=== PATIENT | female | born 1995 | race American Indian/Alaskan Native ===

== ENCOUNTER 2016-08-01 06:45 | Inpatient (IN) | payer MEDICAID ==
[~2016-08-01] VITALS: Ht 167.6 cm; Wt 100.5 kg
[~2016-08-01 06:45] MED LIST: ACET325T14 PO; ALBU8.5H5 INH; ARIP15TA2 PO; FLUT1DIS3 INH; MONT10TA6 PO; NITR100C56 PO; ONDA4TAB7 PO; PRED20TA PO; PREN1TAB56 PO; PREN1TAB62 PO; QUET200T PO; QUET200T4 PO; TOPI25TA32 PO; TOPI50TA35 PO; [UNRECOGNIZED DRUG - OTHER] PO
[2016-08-01] MEDS ORDERED: LACTATED RINGERS 1,000 ML IV SCH ×3 (07:25→09:35)
[2016-08-01] MEDS ORDERED: OXYTOCIN 30U/ 0.9% NaCL 500ML 500 ML IV SCH (07:25)
[2016-08-01 07:30] VITALS: BP 124/78
[2016-08-01] MEDS ORDERED: METOCLOPRAMIDE 5 MG/ML, 2ML IV ONE (07:30)
[2016-08-01] MEDS ORDERED: LACTATED RINGERS 1,000 ML IVBOLUS ONE (07:30)
[2016-08-01] MEDS ORDERED: SODIUM CITRATE/CITRIC ACID 30 ML UDC PO ONE (07:30)
[2016-08-01] MEDS ORDERED: NEWBORN KIT ONE (07:32)
[2016-08-01] MEDS ORDERED: PLEASE ENTER HEIGHT AND WEIGHT MC SCH (08:00)
[2016-08-01] MEDS ORDERED: PROMETHAZINE 25 MG/ML, 1ML IV PRN (08:00)
[2016-08-01] MEDS ORDERED: hydrALAzine 20 MG/ML, 1ML IV PRN (08:00)
[2016-08-01] MEDS ORDERED: OXYcodone 5 MG/5 ML ORAL.SOL UDC PO PRN (08:00)
[2016-08-01] MEDS ORDERED: MIDAZOLAM 1 MG/ML, 2ML IV PRN (08:00)
[2016-08-01] MEDS ORDERED: MEPERIDINE/PF 25MG/0.5ML IVPush PRN (08:00)
[2016-08-01] MEDS ORDERED: LABETALOL 5MG/ML, 20ML IV PRN (08:00)
[2016-08-01] MEDS ORDERED: EPHEDRINE 50 MG/ML, 1ML IVPush PRN (08:00)
[2016-08-01] MEDS ORDERED: FENTANYL PF 100 MCG/2ML IV PRN (08:00)
[2016-08-01] MEDS ORDERED: ONDANSETRON 2MG/ML, 2ML IVPush PRN (08:00)
[2016-08-01] MEDS ORDERED: ALBUTEROL SULFATE 2.5 MG/3 ML NPPB PRN (08:00)
[2016-08-01] MEDS ORDERED: HYDROcodone/APAP 7.5-325MG/15ML UDC PO PRN (08:00)
[2016-08-01 08:11] LABS: HEMOGLOBIN 12.3 g/dL (11.7-16.4)
[2016-08-01] MEDS ORDERED: SODIUM CITRATE/CITRIC ACID 30 ML UDC ONE (08:24)
[2016-08-01] MEDS ORDERED: METOCLOPRAMIDE 5 MG/ML, 2ML ONE ×2 (08:24→09:33)
[2016-08-01] MEDS ORDERED: ALBU0.63 NEB (08:38)
[2016-08-01 08:56] LABS: DAU SCREEN DISCLAIMER
[2016-08-01] MEDS ORDERED: OXYTOCIN 30U/ 0.9% NaCL 500ML 500 ML ONE (09:06)
[2016-08-01] MEDS ORDERED: FENTANYL PF 100 MCG/2ML ONE (09:31)
[2016-08-01] MEDS ORDERED: PHENYLEPHRINE 10 MG/ML ONE (09:33)
[2016-08-01] MEDS ORDERED: KETOROLAC 30 MG/1 ML ONE (09:33)
[2016-08-01] MEDS ORDERED: CEFAZOLIN 1,000 MG ONE (09:33)
[2016-08-01] MEDS ORDERED: ONDANSETRON 2MG/ML, 2ML ONE (09:33)
[2016-08-01] MEDS ORDERED: DEXAMETHASONE 4 MG/ML, 1ML ONE (09:33)
[2016-08-01] MEDS ORDERED: EPHEDRINE 50 MG/ML, 1ML ONE (09:33)
[2016-08-01] MEDS: OXYTOCIN 30U/ 0.9% NaCL 500ML 500 ML IV SCH ×2 (09:35→19:35)
[2016-08-01] MEDS ORDERED: MISOPROSTOL 200 MCG TABLET PR PRN (10:00)
[2016-08-01] MEDS ORDERED: MEPERIDINE/PF 25MG/0.5ML IM PRN (10:00)
[2016-08-01] MEDS ORDERED: OXYcodone IR 5MG TABLET PO PRN (10:00)
[2016-08-01] MEDS ORDERED: ONDANSETRON 2MG/ML, 2ML IV PRN (10:00)
[2016-08-01] MEDS ORDERED: SIMETHICONE 80 MG CHEW TAB PO PRN (10:00)
[2016-08-01] MEDS ORDERED: MEPERIDINE/PF 50 MG/ML IM PRN (10:00)
[2016-08-01] MEDS ORDERED: CALCIUM CARBONATE 500 MG TAB.CHEW PO PRN (10:00)
[2016-08-01] MEDS ORDERED: morphine SULFATE 10 MG/ML, 1ML IVPush PRN ×2 (10:00)
[2016-08-01] MEDS: LACTATED RINGERS 1,000 ML IV SCH ×2 (11:36→19:35)
[2016-08-01 12:56] VITALS: BP 117/72
[2016-08-01] MEDS: OXYcodone/APAP 5/325MG TABLET PO PRN ×3 (13:29→22:03)
[2016-08-01] MEDS: KETOROLAC 30 MG/1 ML IV SCH (19:14)
[2016-08-01 20:50] VITALS: BP 120/71
[2016-08-01] MEDS: DOCUSATE 100 MG CAPSULE PO SCH (22:03)
[2016-08-02 00:02] VITALS: BP 111/65
[2016-08-02] MEDS: KETOROLAC 30 MG/1 ML IV SCH ×3 (01:23→14:43)
[2016-08-02] MEDS: OXYcodone/APAP 5/325MG TABLET PO PRN ×3 (04:51→21:44)
[2016-08-02] MEDS: LACTATED RINGERS 1,000 ML IV SCH ×2 (05:35→15:35)
[2016-08-02] MEDS: OXYTOCIN 30U/ 0.9% NaCL 500ML 500 ML IV SCH ×2 (05:35→15:35)
[2016-08-02 06:11] LABS: HEMOGLOBIN 10.8 g/dL (11.7-16.4)
[2016-08-02 06:45] VITALS: BP 133/79
[2016-08-02] MEDS ORDERED: KETOROLAC 30 MG/1 ML ONE ×2 (08:29→14:37)
[2016-08-02] MEDS: OXYcodone IR 5MG TABLET PO PRN ×2 (08:34→17:34)
[2016-08-02] MEDS: DOCUSATE 100 MG CAPSULE PO SCH ×2 (08:35→21:44)
[2016-08-02] MEDS: PRENATAL VIT/IRON/FA 1 EACH TABLET PO SCH (08:35)
[2016-08-02 19:30] VITALS: BP 128/89
[2016-08-02] MEDS: IBUPROFEN 600 MG TABLET PO PRN (21:44)
[2016-08-03] MEDS: OXYcodone/APAP 5/325MG TABLET PO PRN ×3 (03:08→11:01)
[2016-08-03] MEDS: DOCUSATE 100 MG CAPSULE PO SCH (07:19)
[2016-08-03] MEDS: IBUPROFEN 600 MG TABLET PO PRN (07:19)
[2016-08-03] MEDS: PRENATAL VIT/IRON/FA 1 EACH TABLET PO SCH (07:19)
[2016-08-03 08:00] VITALS: BP 125/89
[2016-08-03] MEDS ORDERED: OXYC-302 PO (11:42)
[2016-08-03] MEDS ORDERED: DOCU-30 PO (11:43)
[2016-08-03] MEDS ORDERED: IBUP800T PO (11:43)
== END 2016-08-03 12:20 | disposition home or self-care (01) | DRG 766 ==
LOC: EDIP 06:45 → LDIP 06:45 → UNDOADMIN 06:45 → 2NW 12:41
PROVIDERS: ADMIT Obstetrics & Gynecology; ATTEND Obstetrics & Gynecology
PROC: 10D00Z1 Extraction of Products of Conception, Low, Open Approach (ICD-10-PCS; principal; 2016-08-01)
DX: O34.211 Maternal care for low transverse scar from previous cesarean delivery (principal); J45.909 Unspecified asthma, uncomplicated; O99.72 Diseases of the skin and subcutaneous tissue complicating childbirth; O99.52 Diseases of the respiratory system complicating childbirth; Z37.0 Single live birth; Z30.2 Encounter for sterilization; Z3A.39 39 weeks gestation of pregnancy; F32.9 Major depressive disorder, single episode, unspecified; O99.344 Other mental disorders complicating childbirth; Z23 Encounter for immunization
CPT/HCPCS: 36415; 80307; 85025; 86850; 86900; J0690; J1100; J1885; J2405; J3010; J2370; J2590; J2765; J7120

== ENCOUNTER 2016-09-06 17:11 | Emergency (ER) | payer MEDICAID ==
[~2016-09-06] VITALS: Ht 167.6 cm; Wt 95.2 kg
[~2016-09-06 17:11] MED LIST changes: +ALBU0.63 NEB; +DOCU-30 PO; +IBUP800T PO; +OXYC-302 PO
[2016-09-06] MEDS ORDERED: ONDANSETRON 2MG/ML, 2ML IVPush ONE (17:30)
[2016-09-06] MEDS ORDERED: SODIUM CHLORIDE FLUSH 10ML SYR IVF ONE (17:30)
[2016-09-06] MEDS ORDERED: ONDANSETRON 2MG/ML, 2ML ONE (17:48)
[2016-09-06 17:54] LABS: ASPARTATE AMINO TRANSFERASE 10 U/L (15-37); BLOOD UREA NITROGEN 10 mg/dL (7-18)
[2016-09-06 18:16] VITALS: BP 127/84
[2016-09-06] MEDS ORDERED: OMNIPAQUE 350 MG/ML, 100ML BOTTLE ONE (19:14)
== END 2016-09-06 18:53 | disposition home or self-care (01) ==
LOC: ED 18:47
DX: N83.291 Other ovarian cyst, right side (principal); R10.84 Generalized abdominal pain; J45.909 Unspecified asthma, uncomplicated
CPT/HCPCS: 36415; 74177; 80053; 81003; 83690; 84703; 85025; 96374; 99285; J2405; Q9967

== ENCOUNTER 2016-10-12 12:01 | Emergency (ER) | payer MEDICAID ==
[~2016-10-12] VITALS: Ht 167.6 cm; Wt 95.1 kg
[2016-10-12 12:21] VITALS: BP 114/79
[2016-10-12 13:22] LABS: ASPARTATE AMINO TRANSFERASE 9 U/L (15-37); BLOOD UREA NITROGEN 13 mg/dL (7-18)
== END 2016-10-12 15:37 | disposition home or self-care (01) ==
LOC: ED 13:05
DX: G89.29 Other chronic pain (principal); R10.31 Right lower quadrant pain; R10.32 Left lower quadrant pain; J45.909 Unspecified asthma, uncomplicated; F90.9 Attention-deficit hyperactivity disorder, unspecified type; F31.9 Bipolar disorder, unspecified
CPT/HCPCS: 36415; 74022; 76830; 80053; 81001; 83605; 83690; 84703; 85025

== ENCOUNTER 2016-10-18 14:08 | Emergency (ER) | payer MEDICAID, OTHER ==
[~2016-10-18] VITALS: Ht 167.6 cm; Wt 94.7 kg
[2016-10-18 14:10] VITALS: BP 115/80
[2016-10-18] MEDS ORDERED: METHOCARBAMOL 750 MG TABLET ONE (14:50)
[2016-10-18] MEDS ORDERED: KETOROLAC 30 MG/1 ML ONE (14:50)
[2016-10-18] MEDS ORDERED: KETOROLAC 30 MG/1 ML IM ONE (15:00)
[2016-10-18] MEDS ORDERED: METHOCARBAMOL 750 MG TABLET PO ONE (15:00)
== END 2016-10-18 15:37 | disposition home or self-care (01) ==
LOC: ED 15:31
DX: S29.012A Strain of muscle and tendon of back wall of thorax, initial encounter (principal); M54.12 Radiculopathy, cervical region; J45.909 Unspecified asthma, uncomplicated; F90.9 Attention-deficit hyperactivity disorder, unspecified type; X50.0XXA Overexertion from strenuous movement or load, initial encounter; Y93.89 Activity, other specified; Y92.89 Other specified places as the place of occurrence of the external cause; Y99.8 Other external cause status
CPT/HCPCS: 96372; 99283; J1885

== ENCOUNTER 2016-11-13 19:18 | Emergency (ER) | payer MEDICAID, OTHER ==
[~2016-11-13] VITALS: Ht 167.6 cm; Wt 94.6 kg
[2016-11-13] MEDS ORDERED: KETOROLAC 30 MG/1 ML IM ONE (20:00)
[2016-11-13 20:03] LABS: PATH.CAST-FLAG NOT PRESENT; SPERM-FLAG NOT PRESENT; SRC-FLAG NOT PRESENT; XTAL-FLAG NOT PRESENT; YLC-FLAG NOT PRESENT
[2016-11-13 20:41] LABS: ASPARTATE AMINO TRANSFERASE 14 U/L (15-37); BLOOD UREA NITROGEN 11 mg/dL (7-18)
[2016-11-13] MEDS ORDERED: KETOROLAC 30 MG/1 ML ONE (20:45)
[2016-11-13 21:10] VITALS: BP 116/84
== END 2016-11-13 21:57 | disposition home or self-care (01) ==
LOC: ED 21:25
DX: R10.32 Left lower quadrant pain (principal); R11.0 Nausea; J45.909 Unspecified asthma, uncomplicated
CPT/HCPCS: 36415; 76830; 80053; 81001; 84703; 85025; 87086; 96372; 99285; J1885

== ENCOUNTER 2016-12-28 11:28 | Emergency (ER) | payer MEDICAID ==
[~2016-12-28] VITALS: Ht 167.6 cm; Wt 95.0 kg
[~2016-12-28 11:28] MED LIST changes: -ARIP15TA2 PO; +ARIP15TA3 PO; +DOCU-131 PO; -DOCU-30 PO; +IBUP-1223 PO; -IBUP800T PO
[2016-12-28] MEDS ORDERED: SODIUM CHLORIDE 0.9% 1,000 ML IV ONE (11:58)
[2016-12-28] MEDS ORDERED: KETOROLAC 30 MG/1 ML IVPush ONE (12:00)
[2016-12-28] MEDS ORDERED: ONDANSETRON 2MG/ML, 2ML IVPush ONE (12:00)
[2016-12-28] MEDS ORDERED: MORPHINE SULFATE 4 MG/ML, 1ML IVPush PRN (12:00)
[2016-12-28 12:20] LABS: HEMATOCRIT 41.9 % (34.6-47.8); WHITE BLOOD COUNT 10.6 x10^3/uL (3.4-10)
[2016-12-28 12:28] LABS: BLOOD UREA NITROGEN 14 mg/dL (7-18)
[2016-12-28 12:32] LABS: ASPARTATE AMINO TRANSFERASE 13 U/L (15-37)
[2016-12-28] MEDS ORDERED: KETOROLAC 30 MG/1 ML ONE (12:37)
[2016-12-28] MEDS ORDERED: ONDANSETRON 2MG/ML, 2ML ONE (12:37)
[2016-12-28] MEDS ORDERED: MORPHINE SULFATE 4 MG/ML, 1ML ONE (12:37)
[2016-12-28 13:04] LABS: HCG UR OBC PASS
[2016-12-28 14:30] VITALS: BP 116/62
== END 2016-12-28 14:31 | disposition home or self-care (01) ==
LOC: ED 12:33
DX: R05 Cough (principal); J45.909 Unspecified asthma, uncomplicated; G40.909 Epilepsy, unspecified, not intractable, without status epilepticus; F90.9 Attention-deficit hyperactivity disorder, unspecified type
CPT/HCPCS: 36415; 71010; 76830; 80053; 81001; 81025; 85025; 87086; 96361; 96374; 96375; 99285; J1885; J2405; J7030

== ENCOUNTER 2019-06-15 19:09 | Observation (INO) | payer MEDICAID ==
[~2019-06-15] VITALS: Ht 167.6 cm; Wt 113.6 kg
--- NOTE | 2019-06-15 20:47 | NUR ---
pt to room at this time from lobby
--- NOTE | 2019-06-15 20:59 | NUR ---
PT TO ROOM. PT REPORTS GETTING SICK AND HAVING ABD PAIN AFTER EATING PIZZA FROM [employer]. AND 2 FRIENDS ALOS ATE THE PIZZA AND HAVE BEEN FINE.
[2019-06-15 21:38] LABS: BASOPHILS # (AUTO) 0.05 x10^3/uL (0-0.1); BASOPHILS % (AUTO) 1 % (0-1); EOSINOPHILS # (AUTO) 0.06 x10^3/uL (0-0.4); EOSINOPHILS % (AUTO) 1 % (1-7); LYMPHOCYTES # (AUTO) 1.96 x10^3/uL (1-3.4); LYMPHOCYTES % (AUTO) 20 % (22-44); MD NO; MEAN CORPUSCULAR HGB CONC 33.3 g/dL (32.4-35.8); MEAN CORPUSCULAR VOLUME 87.1 fL (80-100); MEAN PLATELET VOLUME 7.4 fL (7.4-10.4); MONOCYTES # (AUTO) 0.49 x10^3/uL (0.2-0.8); MONOCYTES % (AUTO) 5 % (2-9); NEUTROPHILS # (AUTO) 7.49 x10^3/uL (1.8-6.8); NEUTROPHILS % (AUTO) 75 % (42-75); PLATELET COUNT 464 x10^3/uL (130-400); RED BLOOD COUNT 4.66 x10^6/uL (3.82-5.3); RED CELL DISTRIBUTION WIDTH 14.6 % (9.6-15.2)
[2019-06-15] MEDS ORDERED: MORPHINE SULFATE 4 MG/ML, 1ML ONE ×2 (21:43→23:43)
[2019-06-15] MEDS ORDERED: ONDANSETRON 2MG/ML, 2ML ONE (21:43)
[2019-06-15 21:49] LABS: ALBUMIN 3.2 g/dL (3.4-5.0); ANION GAP 5 mmol/L (5-15); CALCIUM 8.5 mg/dL (8.5-10.1); CHLORIDE 110 mmol/L (98-107)
[2019-06-15 21:50] LABS: MICROSCOPIC INDICATED
[2019-06-15 21:52] LABS: ALANINE AMINOTRANSFERASE 79 U/L (12-78); CREATININE 0.74 mg/dL (0.55-1.02)
[2019-06-15] MEDS: MORPHINE SULFATE 4 MG/ML, 1ML IVPush PRN ×2 (21:52→23:49)
[2019-06-15 21:53] LABS: CULTURE INDICATED? YES
[2019-06-15 21:53] LABS: ALKALINE PHOSPHATASE 143 U/L (45-117); BILIRUBIN,TOTAL 0.8 mg/dL (0.2-1.0); TOTAL PROTEIN 7.3 g/dL (6.4-8.2)
--- NOTE | 2019-06-15 21:53 | NUR ---
PT VOMITTING AND NASEUOUS. SEE MAR FOR INTERVENTIONS
[2019-06-15 21:54] LABS: SALICYLATE LEVEL < 1.7 mg/dL (2.8-20.0)
[2019-06-15 22:00] LABS: AMPHETAMINE SCREEN, URINE Negative (Negative); BARBITURATE SCREEN, URINE Negative (Negative); BENZODIAZEPINE SCREEN, URINE Negative (Negative); CANNABINOID SCREEN, URINE Negative (Negative); COCAINE SCREEN, URINE Negative (Negative); METHADONE SCREEN, URINE Negative (Negative); OPIATE SCREEN, URINE Negative (Negative)
[2019-06-15] MEDS ORDERED: ONDANSETRON 2MG/ML, 2ML IVPush ONE (22:00)
--- NOTE | 2019-06-15 22:06 | NUR ---
REPORT GIVEN TO ARMANI MOSS.
--- NOTE | 2019-06-15 22:10 | NUR ---
REPORT RECEIVED AND CARE ASSUMED. PT WITH NO S/S OF ACUTE DISTRESS. AWAITING US. CALL LIGHT IN REACH. VSS. NO NEEDS EXPRESSED AT THIS TIME.
--- NOTE | 2019-06-15 22:34 | NUR ---
PT TO US VIA [facility]
[2019-06-15] MEDS ORDERED: SODIUM CHLORIDE 0.9% 1,000 ML IV ONE (23:28)
[2019-06-15] MEDS ORDERED: SODIUM CHLORIDE FLUSH 10ML SYR IVF PRN (23:30)
[2019-06-15] MEDS ORDERED: HYDROmorphone 1 MG/ML, 1ML INJ IVPush PRN (23:30)
[2019-06-15] MEDS ORDERED: PROMETHAZINE 25 MG/ML, 1ML IM PRN (23:30)
[2019-06-15] MEDS ORDERED: ONDANSETRON 2MG/ML, 2ML IVPush PRN (23:30)
[2019-06-15] MEDS ORDERED: PIPERACILLIN/TAZO/PMX 3.375GM 50 ML IV ONE (23:30)
[2019-06-15] MEDS ORDERED: PIPERACILLIN/TAZO/PMX 3.375GM 50 ML ONE (23:43)
--- NOTE | 2019-06-15 23:58 | NUR ---
PT MEDICATED PER MAR FOR CONTINUED PAIN. IV ANTIBIOTICS AND FLUIDS INFUSING. CALL LIGHT IN REACH. AWAITING ADMISSION.
--- NOTE | 2019-06-16 00:11 | NUR ---
SURGEON AT BEDSIDE FOR EVAL.
[2019-06-16] MEDS ORDERED: ONDANSETRON ODT 4 MG PO PRN (00:30)
[2019-06-16] MEDS ORDERED: ACETAMINOPHEN 325 MG TABLET PO PRN ×2 (00:30→10:00)
[2019-06-16] MEDS ORDERED: CEFOTETAN PMX 2GM/50ML 50 ML IV SCH (01:00)
[2019-06-16 01:06] VITALS: BP 143/91
[2019-06-16] MEDS ORDERED: ALBU18HF IH (01:37)
[2019-06-16] MEDS: D5%-0.45NACL+KCL 20MEQ 1,000 ML IV SCH ×2 (01:51→12:00)
[2019-06-16 02:00] VITALS: BP 143/91
[2019-06-16 06:43] LABS: MEAN CORPUSCULAR HEMOGLOBIN 28.8 pg (27.0-34.8); MEAN CORPUSCULAR HGB CONC 33.1 g/dL (32.4-35.8); MEAN CORPUSCULAR VOLUME 86.9 fL (80-100); MEAN PLATELET VOLUME 7.1 fL (7.4-10.4); PLATELET COUNT 406 x10^3/uL (130-400); RED BLOOD COUNT 4.22 x10^6/uL (3.82-5.3); RED CELL DISTRIBUTION WIDTH 14.5 % (9.6-15.2)
[2019-06-16 06:53] LABS: ANION GAP 6 mmol/L (5-15); CALCIUM 8.1 mg/dL (8.5-10.1); CHLORIDE 111 mmol/L (98-107); CREATININE 1.01 mg/dL (0.55-1.02)
[2019-06-16 07:28] VITALS: BP 91/64
[2019-06-16 08:06] LABS: MD YES
[2019-06-16 08:14] LABS: BAND#(MANUAL) 0.09 x10^3/uL; BANDS%(MANUAL) 1 % (0-7); EOS#(MANUAL) 0.17 x10^3/uL (0.0-0.4); EOS% (MANUAL) 2 % (1-7); LYMPH#(MANUAL) 3.06 x10^3/uL (1-3.4); LYMPHS% (MANUAL) 36 % (22-44); MONOS#(MANUAL) 0.26 x10^3/uL (0.3-2.7); MONOS% (MANUAL) 3 % (2-9); SEG#(MANUAL) 4.93 x10^3/uL (1.8-6.8); SEGS% (MANUAL) 58 % (42-75)
[2019-06-16 08:15] LABS: <PLATELET ESTIMATE> ADEQUATE; <PLT MORPHOLOGY> NORMAL PLT MORPH; <RBC MORPHOLOGY> NORMAL
[2019-06-16] MEDS ORDERED: OXYcodone 5 MG/5 ML ORAL.SOL UDC PO PRN (10:00)
[2019-06-16] MEDS ORDERED: HYDROmorphone 2 MG/ML, 1ML IVPush PRN (10:00)
[2019-06-16] MEDS ORDERED: MEPERIDINE/PF 25MG/ML,1ML IVPush PRN (10:00)
[2019-06-16] MEDS ORDERED: ONDANSETRON 2MG/ML, 2ML IV PRN (10:00)
[2019-06-16] MEDS ORDERED: EPHEDRINE 50 MG/ML, 1ML IVPush PRN (10:00)
[2019-06-16] MEDS ORDERED: METOPROLOL 1 MG/ML, 5ML IV PRN (10:00)
[2019-06-16] MEDS ORDERED: PROMETHAZINE 25 MG/ML, 1ML IV PRN (10:00)
[2019-06-16] MEDS ORDERED: LABETALOL 5MG/ML, 20ML IV PRN (10:00)
[2019-06-16] MEDS ORDERED: morphine SULFATE 10 MG/ML, 1ML ONE (10:38)
[2019-06-16] MEDS: morphine SULFATE 10 MG/ML, 1ML IVPush PRN ×3 (10:45→13:12)
[2019-06-16] MEDS ORDERED: FENTANYL PF 100 MCG/2ML ONE ×4 (10:54→12:35)
[2019-06-16] MEDS ORDERED: MIDAZOLAM 1 MG/ML, 2ML ONE (10:54)
[2019-06-16] MEDS ORDERED: BUPIVACAINE/PF 0.5% ONE (11:12)
[2019-06-16] MEDS ORDERED: EPINEPHRINE 1 MG/ML, 1ML ONE (11:12)
[2019-06-16] MEDS ORDERED: ONDANSETRON 2MG/ML, 2ML ONE (11:20)
[2019-06-16] MEDS ORDERED: CEFOTETAN PMX 1GM/50ML 100 ML ONE (11:20)
[2019-06-16] MEDS ORDERED: SUCCINYLCHOLINE 20 MG/ML, 10ML ONE (11:20)
[2019-06-16] MEDS ORDERED: PROPOFOL 10 MG/ML, 20ML ONE (11:20)
[2019-06-16] MEDS ORDERED: DEXAMETHASONE 4 MG/ML, 1ML ONE (11:20)
[2019-06-16] MEDS ORDERED: ROCURONIUM 10MG/ML,5ML ONE (11:20)
[2019-06-16] MEDS ORDERED: GLYCOPYRROLATE 0.2MG/1ML, 5ML ONE (11:20)
[2019-06-16] MEDS ORDERED: CEFAZOLIN 1,000 MG ONE (11:20)
[2019-06-16] MEDS ORDERED: NEOSTIGMINE 1 MG/ML, 10ML ONE (11:20)
[2019-06-16] MEDS ORDERED: LIDOCAINE-MPF 2% ,5ML ONE (11:25)
[2019-06-16] MEDS ORDERED: KETOROLAC 30 MG/1 ML ONE (11:32)
[2019-06-16] MEDS ORDERED: BUPIVACAINE/PF-EPI 0.5% 1:200K INFIL ONE (11:49)
[2019-06-16] MEDS ORDERED: HYDROcodone/APAP 5/325 TABLET PO PRN (12:30)
[2019-06-16] MEDS ORDERED: PROMETHAZINE 25 MG/ML, 1ML ONE (12:34)
[2019-06-16] MEDS: FENTANYL PF 100 MCG/2ML IV PRN ×2 (12:36→13:00)
[2019-06-16] MEDS ORDERED: HYDROmorphone 1 MG/ML, 1ML INJ ONE (13:22)
[2019-06-16 13:50] VITALS: BP 108/62
[2019-06-16] MEDS ORDERED: ONDA4TAB13 SL (16:25)
[2019-06-16] MEDS ORDERED: HYDR-3240 PO (16:26)
[2019-06-16 17:57] VITALS: BP 109/73
== END 2019-06-16 18:28 | disposition home or self-care (01) ==
LOC: OR 06-16 00:07 → EDIP 06-16 00:21 → 4NE 06-16 00:57
PROVIDERS: ADMIT Surgery; ATTEND Surgery
DX: K80.00 Calculus of gallbladder with acute cholecystitis without obstruction (principal); E66.9 Obesity, unspecified; G40.909 Epilepsy, unspecified, not intractable, without status epilepticus; F31.9 Bipolar disorder, unspecified; F41.1 Generalized anxiety disorder; J45.909 Unspecified asthma, uncomplicated; Z68.41 Body mass index [BMI] 40.0-44.9, adult; Z79.899 Other long term (current) drug therapy; Z90.89 Acquired absence of other organs
CPT/HCPCS: 36415; 47562; 76700; 80048; 80053; 80307; 81001; 83690; 84703; 85025; 87077; 87086; 87186; 88304; 93005; 96365; 96367; 96375; 99285; G0378; J0171; J0330; J1100; J1170; J1885; J2250; J2270; J2405; J2543; J2550; J2704; J2710; J3010; J3480; J3490; J7030; S0020; J0690

== ENCOUNTER 2019-07-07 14:14 | Emergency (ER) | payer MEDICAID ==
[~2019-07-07] VITALS: Ht 167.6 cm; Wt 115.2 kg
[~2019-07-07 14:14] MED LIST changes: +ALBU18HF IH; +HYDR-3240 PO; +ONDA4TAB13 SL
[2019-07-07 15:14] LABS: BASOPHILS # (AUTO) 0.09 x10^3/uL (0-0.1); BASOPHILS % (AUTO) 1 % (0-1); EOSINOPHILS # (AUTO) 0.19 x10^3/uL (0-0.4); EOSINOPHILS % (AUTO) 2 % (1-7); LYMPHOCYTES # (AUTO) 3.38 x10^3/uL (1-3.4); LYMPHOCYTES % (AUTO) 36 % (22-44); MD NO; MEAN CORPUSCULAR HEMOGLOBIN 28.3 pg (27.0-34.8); MEAN CORPUSCULAR HGB CONC 32.5 g/dL (32.4-35.8); MEAN CORPUSCULAR VOLUME 86.9 fL (80-100); MEAN PLATELET VOLUME 6.8 fL (7.4-10.4); MONOCYTES # (AUTO) 0.46 x10^3/uL (0.2-0.8); MONOCYTES % (AUTO) 5 % (2-9); NEUTROPHILS # (AUTO) 5.36 x10^3/uL (1.8-6.8); NEUTROPHILS % (AUTO) 57 % (42-75); PLATELET COUNT 511 x10^3/uL (130-400); RED BLOOD COUNT 4.79 x10^6/uL (3.82-5.3); RED CELL DISTRIBUTION WIDTH 14.9 % (9.6-15.2)
[2019-07-07 15:25] LABS: ALBUMIN 3.2 g/dL (3.4-5.0); ANION GAP 6 mmol/L (5-15); CALCIUM 8.7 mg/dL (8.5-10.1); CHLORIDE 111 mmol/L (98-107)
--- NOTE | 2019-07-07 16:54 | NUR ---
Pt to room 14 from lobby
[2019-07-07] MEDS ORDERED: OMNIPAQUE 350 MG/ML, 100ML BOTTLE ONE (17:10)
[2019-07-07] MEDS ORDERED: MORPHINE SULFATE 4 MG/ML, 1ML ONE (17:30)
[2019-07-07] MEDS ORDERED: MORPHINE SULFATE 4 MG/ML, 1ML IVPush PRN (17:30)
[2019-07-07] MEDS ORDERED: ONDANSETRON 2MG/ML, 2ML ONE (17:30)
[2019-07-07] MEDS ORDERED: SODIUM CHLORIDE 0.9% 1,000ML IVBOLUS ONE (17:30)
[2019-07-07] MEDS ORDERED: SODIUM CHLORIDE FLUSH 10ML SYR IVF ONE (17:30)
[2019-07-07] MEDS ORDERED: ONDANSETRON 2MG/ML, 2ML IVPush ONE (17:30)
[2019-07-07 17:37] LABS: MICROSCOPIC NOT IND
[2019-07-07 17:40] LABS: CULTURE INDICATED? NO
--- NOTE | 2019-07-07 17:48 | NUR ---
PT HAS CO ABDOMINAL PAIN W N/V FOR 1 WEEK. CRYSTAL FEVER OR COUGH, NO SOB OR CP. UA COLLECTED
--- NOTE | 2019-07-07 18:30 | NUR ---
US IV ESTABLISHED. MEDICATED PER ORDERS. NO NEEDS AT THIS TIME
--- NOTE | 2019-07-07 19:01 | NUR ---
PT IN CT
[2019-07-07 19:52] VITALS: BP 110/60
--- NOTE | 2019-07-07 19:52 | NUR ---
Patient/Caregiver given discharge instructions and they have confirmed that they understand the instructions. Patient ambulatory with steady gait.
--- NOTE | 2019-07-07 20:02 | NUR ---
Patient/Caregiver given discharge instructions and they have confirmed that they understand the instructions. Patient ambulatory with steady gait.
== END 2019-07-07 20:05 | disposition home or self-care (01) ==
LOC: ED 18:35
DX: R10.32 Left lower quadrant pain (principal); Z90.49 Acquired absence of other specified parts of digestive tract; J45.909 Unspecified asthma, uncomplicated; G40.909 Epilepsy, unspecified, not intractable, without status epilepticus; Z90.89 Acquired absence of other organs
CPT/HCPCS: 36415; 74018; 74177; 76830; 80048; 81003; 82040; 84703; 85025; 96374; 96375; 99285; J2270; J2405; J7030; Q9967

== ENCOUNTER 2019-10-26 20:47 | Emergency (ER) | payer MEDICAID ==
[~2019-10-26] VITALS: Ht 167.6 cm; Wt 116.7 kg
[2019-10-26 20:48] VITALS: BP 135/78
== END 2019-10-26 22:09 | disposition home or self-care (01) ==
LOC: ED 22:00
DX: S80.01XA Contusion of right knee, initial encounter (principal); G40.909 Epilepsy, unspecified, not intractable, without status epilepticus; J45.909 Unspecified asthma, uncomplicated; Z90.89 Acquired absence of other organs; Z90.49 Acquired absence of other specified parts of digestive tract; W18.30XA Fall on same level, unspecified, initial encounter; Y93.51 Activity, roller skating (inline) and skateboarding; Y99.8 Other external cause status; Y92.89 Other specified places as the place of occurrence of the external cause
CPT/HCPCS: 99283

== ENCOUNTER 2019-11-21 19:38 | Emergency (ER) | payer MEDICAID ==
[~2019-11-21] VITALS: Ht 167.6 cm; Wt 114.9 kg
--- NOTE | 2019-11-21 20:53 | NUR ---
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 TO ROOM FROM LOBBY AT THIS TIME.
[2019-11-21 21:24] LABS: BASOPHILS # (AUTO) 0.11 x10^3/uL (0-0.1); BASOPHILS % (AUTO) 1 % (0-1); EOSINOPHILS # (AUTO) 0.01 x10^3/uL (0-0.4); EOSINOPHILS % (AUTO) 0 % (1-7); LYMPHOCYTES # (AUTO) 3.92 x10^3/uL (1-3.4); LYMPHOCYTES % (AUTO) 29 % (22-44); MD NO; MEAN CORPUSCULAR HEMOGLOBIN 28.8 pg (27.0-34.8); MEAN CORPUSCULAR HGB CONC 32.8 g/dL (32.4-35.8); MEAN CORPUSCULAR VOLUME 87.7 fL (80-100); MEAN PLATELET VOLUME 7.1 fL (7.4-10.4); MONOCYTES # (AUTO) 0.69 x10^3/uL (0.2-0.8); MONOCYTES % (AUTO) 5 % (2-9); NEUTROPHILS # (AUTO) 8.75 x10^3/uL (1.8-6.8); NEUTROPHILS % (AUTO) 65 % (42-75); PLATELET COUNT 471 x10^3/uL (130-400); RED BLOOD COUNT 4.68 x10^6/uL (3.82-5.3)
[2019-11-21] MEDS ORDERED: ONDANSETRON 2MG/ML, 2ML IVPush ONE (21:30)
[2019-11-21] MEDS ORDERED: PROMETHAZINE 25 MG/ML, 1ML IM ONE (21:30)
[2019-11-21] MEDS ORDERED: SODIUM CHLORIDE FLUSH 10ML SYR IVF ONE (21:30)
[2019-11-21 21:37] LABS: ALANINE AMINOTRANSFERASE 23 U/L (12-78); ALBUMIN 3.4 g/dL (3.4-5.0); ANION GAP 8 mmol/L (5-15); CALCIUM 8.6 mg/dL (8.5-10.1); CHLORIDE 111 mmol/L (98-107); CREATININE 0.75 mg/dL (0.55-1.02)
[2019-11-21 21:42] LABS: ALKALINE PHOSPHATASE 115 U/L (45-117); BILIRUBIN,TOTAL 0.3 mg/dL (0.2-1.0); TOTAL PROTEIN 7.5 g/dL (6.4-8.2)
[2019-11-21] MEDS ORDERED: PROMETHAZINE 25 MG/ML, 1ML ONE (21:48)
[2019-11-21] MEDS ORDERED: ONDANSETRON 2MG/ML, 2ML ONE (21:48)
[2019-11-21] MEDS ORDERED: MORPHINE SULFATE 4 MG/ML, 1ML ONE ×2 (21:49→23:44)
[2019-11-21] MEDS: MORPHINE SULFATE 4 MG/ML, 1ML IVPush PRN (21:54)
--- NOTE | 2019-11-21 21:59 | NUR ---
PT MEDICATED PER EMAR. PT RESTING IN BED. BUS STARTER WILL CONTINUE TO MONITOR PT VSS
[2019-11-21] MEDS ORDERED: OMNIPAQUE 350 MG/ML, 100ML BOTTLE ONE (22:13)
[2019-11-21 23:40] LABS: MICROSCOPIC INDICATED
[2019-11-22] MEDS: MORPHINE SULFATE 4 MG/ML, 1ML IVPush PRN (00:11)
[2019-11-22 00:50] VITALS: BP 132/75
== END 2019-11-22 00:52 | disposition home or self-care (01) ==
LOC: ED 11-22 00:48
DX: N30.00 Acute cystitis without hematuria (principal); R11.2 Nausea with vomiting, unspecified; R10.11 Right upper quadrant pain; R10.13 Epigastric pain; J45.909 Unspecified asthma, uncomplicated; G40.909 Epilepsy, unspecified, not intractable, without status epilepticus; Z90.89 Acquired absence of other organs; Z90.49 Acquired absence of other specified parts of digestive tract
CPT/HCPCS: 36415; 74022; 74177; 80053; 81001; 83690; 84703; 85025; 87077; 87086; 87186; 96372; 96374; 96375; 96376; 99285; J2270; J2405; J2550; Q9967

== ENCOUNTER 2019-12-21 17:31 | Emergency (ER) | payer MEDICAID ==
[~2019-12-21] VITALS: Ht 170.2 cm; Wt 105.0 kg
--- NOTE | 2019-12-21 18:23 | NUR ---
PT BIB EMS FOR LOW BLOOD SUGAR 54 AND FEELING HORRIBLE AT WORK. PT GIVEN GLUCOSE. PT BS 101 IN ED. GIVEN CRACKERS AND JUICE. PT DENIES CP, SOB, COUGH, FEVER.
--- NOTE | 2019-12-21 18:27 | NUR ---
PT AMBULATED TO BATHROOM W STEADY GAIT FOR UA
[2019-12-21 18:38] LABS: BASOPHILS # (AUTO) 0.11 x10^3/uL (0-0.1); BASOPHILS % (AUTO) 1 % (0-1); EOSINOPHILS # (AUTO) 0.09 x10^3/uL (0-0.4); EOSINOPHILS % (AUTO) 1 % (1-7); LYMPHOCYTES # (AUTO) 3.21 x10^3/uL (1-3.4); LYMPHOCYTES % (AUTO) 30 % (22-44); MD NO; MEAN CORPUSCULAR HEMOGLOBIN 28.9 pg (27.0-34.8); MEAN CORPUSCULAR HGB CONC 32.8 g/dL (32.4-35.8); MEAN CORPUSCULAR VOLUME 88.2 fL (80-100); MEAN PLATELET VOLUME 7.1 fL (7.4-10.4); MONOCYTES % (AUTO) 5 % (2-9); NEUTROPHILS # (AUTO) 6.88 x10^3/uL (1.8-6.8); NEUTROPHILS % (AUTO) 64 % (42-75); PLATELET COUNT 445 x10^3/uL (130-400); RED BLOOD COUNT 4.56 x10^6/uL (3.82-5.3); RED CELL DISTRIBUTION WIDTH 14.3 % (9.6-15.2)
[2019-12-21 18:42] LABS: MICROSCOPIC INDICATED
[2019-12-21 18:49] LABS: ALBUMIN 3.6 g/dL (3.4-5.0); ANION GAP 6 mmol/L (5-15); CALCIUM 8.9 mg/dL (8.5-10.1); CHLORIDE 111 mmol/L (98-107)
--- NOTE | 2019-12-21 18:58 | NUR ---
REPORT TO MATEUSZ
[2019-12-21 19:00] LABS: ALANINE AMINOTRANSFERASE 19 U/L (12-78); ALKALINE PHOSPHATASE 110 U/L (45-117); BILIRUBIN,TOTAL 0.3 mg/dL (0.2-1.0); T4 (THYROXINE) 10.5 mcg/dL (4.8-13.9); TOTAL PROTEIN 7.3 g/dL (6.4-8.2)
--- NOTE | 2019-12-21 19:20 | NUR ---
Assumed care of pt. Pt resting comfortably on stretcher. States improvement from arrival, but "still feeling crummy." Able to tolerate PO food/liquids without difficulty
[2019-12-21 20:17] VITALS: BP 104/69
== END 2019-12-21 20:23 | disposition home or self-care (01) ==
LOC: ED 19:42
DX: E16.2 Hypoglycemia, unspecified (principal); R42 Dizziness and giddiness; J45.909 Unspecified asthma, uncomplicated; Z90.49 Acquired absence of other specified parts of digestive tract; Z90.89 Acquired absence of other organs
CPT/HCPCS: 80053; 81001; 82962; 84436; 84443; 85025; 99283

== ENCOUNTER 2020-01-04 12:08 | Emergency (ER) | payer MEDICAID ==
[~2020-01-04] VITALS: Ht 167.6 cm; Wt 116.1 kg
--- NOTE | 2020-01-04 13:17 | NUR ---
PT TO ROOM FROM LOBBY AT THIS TIME. PT HAS CO N/V RT TO STRESS FROM COURT. PT STATES SHE HAS ABDOMINAL PAIN, DENIES PIANFUL URINATION, DENIES CP OR SOB
[2020-01-04] MEDS ORDERED: ONDANSETRON ODT 4 MG PO ONE (13:30)
[2020-01-04 13:49] LABS: BASOPHILS # (AUTO) 0.04 x10^3/uL (0-0.1); BASOPHILS % (AUTO) 0 % (0-1); EOSINOPHILS # (AUTO) 0.15 x10^3/uL (0-0.4); EOSINOPHILS % (AUTO) 1 % (1-7); LYMPHOCYTES % (AUTO) 31 % (22-44); MD NO; MEAN CORPUSCULAR HEMOGLOBIN 28.6 pg (27.0-34.8); MEAN CORPUSCULAR HGB CONC 32.1 g/dL (32.4-35.8); MEAN CORPUSCULAR VOLUME 89.2 fL (80-100); MEAN PLATELET VOLUME 7.2 fL (7.4-10.4); MONOCYTES # (AUTO) 0.59 x10^3/uL (0.2-0.8); MONOCYTES % (AUTO) 5 % (2-9); NEUTROPHILS # (AUTO) 6.92 x10^3/uL (1.8-6.8); NEUTROPHILS % (AUTO) 62 % (42-75); PLATELET COUNT 456 x10^3/uL (130-400); RED BLOOD COUNT 4.71 x10^6/uL (3.82-5.3); RED CELL DISTRIBUTION WIDTH 13.9 % (9.6-15.2)
[2020-01-04 13:59] LABS: ALANINE AMINOTRANSFERASE 16 U/L (12-78); ALBUMIN 3.3 g/dL (3.4-5.0); ANION GAP 6 mmol/L (5-15); CALCIUM 8.9 mg/dL (8.5-10.1); CHLORIDE 109 mmol/L (98-107); CREATININE 0.71 mg/dL (0.55-1.02)
[2020-01-04 14:03] LABS: ALKALINE PHOSPHATASE 114 U/L (45-117); BILIRUBIN,TOTAL 0.2 mg/dL (0.2-1.0)
[2020-01-04] MEDS ORDERED: ONDANSETRON ODT 4 MG ONE (14:06)
--- NOTE | 2020-01-04 14:30 | NUR ---
PT RESTING, IV ESTABLISHED, WAITING FOR CT
[2020-01-04 14:58] LABS: MICROSCOPIC INDICATED
--- NOTE | 2020-01-04 15:32 | NUR ---
PT BACK FROM CT
[2020-01-04] MEDS ORDERED: OMNIPAQUE 350 MG/ML, 100ML BOTTLE ONE (15:39)
[2020-01-04 16:12] VITALS: BP 130/78
--- NOTE | 2020-01-04 16:59 | NUR ---
Patient/Caregiver given discharge instructions and they have confirmed that they understand the instructions. Patient ambulatory with steady gait.
== END 2020-01-04 17:00 | disposition home or self-care (01) ==
LOC: ED 14:45
DX: R10.84 Generalized abdominal pain (principal); R11.2 Nausea with vomiting, unspecified
CPT/HCPCS: 36415; 74177; 80053; 81001; 83690; 84703; 85025; 99285; Q0162; Q9967

== ENCOUNTER 2020-01-17 17:56 | Emergency (ER) | payer MEDICAID ==
[~2020-01-17] VITALS: Ht 170.2 cm; Wt 115.8 kg
[2020-01-17 18:05] VITALS: BP 131/83
--- NOTE | 2020-01-17 19:14 | NUR ---
PATIENT TO ROOM FROM [facility]. AMBULATORY WITH STEADY GAIT
[2020-01-17] MEDS ORDERED: IBUPROFEN 600 MG TABLET PO ONE (20:00)
[2020-01-17] MEDS ORDERED: IBUPROFEN 600 MG TABLET ONE (20:33)
== END 2020-01-17 20:51 | disposition home or self-care (01) ==
LOC: ED 20:04
DX: S83.91XA Sprain of unspecified site of right knee, initial encounter (principal); E16.2 Hypoglycemia, unspecified; Z90.89 Acquired absence of other organs; Z90.49 Acquired absence of other specified parts of digestive tract; W01.0XXA Fall on same level from slipping, tripping and stumbling without subsequent striking against object, initial encounter; Y93.89 Activity, other specified; Y92.098 Other place in other non-institutional residence as the place of occurrence of the external cause; Y99.8 Other external cause status
CPT/HCPCS: 29505; 99283

== ENCOUNTER 2020-03-01 15:56 | Emergency (ER) | payer MEDICAID ==
[~2020-03-01] VITALS: Ht 170.2 cm; Wt 112.2 kg
[2020-03-01] MEDS ORDERED: ONDANSETRON 2MG/ML, 2ML IVPush ONE (16:30)
[2020-03-01] MEDS ORDERED: SODIUM CHLORIDE FLUSH 10ML SYR IVF ONE (16:30)
[2020-03-01] MEDS ORDERED: ONDANSETRON 2MG/ML, 2ML ONE (16:43)
[2020-03-01] MEDS ORDERED: MORPHINE SULFATE 4 MG/ML, 1ML ONE ×2 (16:43→16:59)
[2020-03-01 16:44] LABS: BASOPHILS % (AUTO) 1 % (0-1); EOSINOPHILS % (AUTO) 0 % (1-7); LYMPHOCYTES % (AUTO) 44 % (22-44); MEAN CORPUSCULAR HEMOGLOBIN 28.7 pg (27.0-34.8); MEAN CORPUSCULAR HGB CONC 32.6 g/dL (32.4-35.8); MEAN PLATELET VOLUME 6.9 fL (7.4-10.4); MONOCYTES % (AUTO) 10 % (2-9); NEUTROPHILS % (AUTO) 45 % (42-75); PLATELET COUNT 403 x10^3/uL (130-400); RED BLOOD COUNT 4.94 x10^6/uL (3.82-5.3); RED CELL DISTRIBUTION WIDTH 14.3 % (9.6-15.2)
[2020-03-01 16:45] LABS: MD NO
[2020-03-01] MEDS: MORPHINE SULFATE 4 MG/ML, 1ML IVPush PRN ×2 (16:47→17:04)
[2020-03-01 16:57] LABS: ANION GAP 5 mmol/L (5-15); CALCIUM 8.5 mg/dL (8.5-10.1); CHLORIDE 114 mmol/L (98-107); CREATININE 0.72 mg/dL (0.55-1.02)
[2020-03-01 16:58] LABS: ALANINE AMINOTRANSFERASE 25 U/L (12-78); ALBUMIN 3.6 g/dL (3.4-5.0)
[2020-03-01 17:02] LABS: ALKALINE PHOSPHATASE 122 U/L (45-117); BILIRUBIN,TOTAL 0.3 mg/dL (0.2-1.0); TOTAL PROTEIN 7.4 g/dL (6.4-8.2)
[2020-03-01] MEDS ORDERED: MAALOX/HYOSCYAMINE/LIDOCAINE 45 ML BTL PO ONE (18:00)
[2020-03-01] MEDS ORDERED: MAALOX/HYOSCYAMINE/LIDOCAINE 45 ML BTL ONE (18:01)
--- NOTE | 2020-03-01 18:06 | NUR ---
GI COCKTAIL GIVEN. WILL CONTINUE TO MONITOR.
[2020-03-01 18:52] VITALS: BP 113/64
--- NOTE | 2020-03-01 18:53 | NUR ---
Patient given discharge instructions and they have confirmed that they understand the instructions. Patient ambulatory with steady gait.
== END 2020-03-01 18:54 | disposition home or self-care (01) ==
LOC: ED 17:32
DX: G89.29 Other chronic pain (principal); R10.12 Left upper quadrant pain; A09 Infectious gastroenteritis and colitis, unspecified; K92.1 Melena; E16.2 Hypoglycemia, unspecified; Z90.89 Acquired absence of other organs; Z90.49 Acquired absence of other specified parts of digestive tract
CPT/HCPCS: 36415; 74018; 76700; 80053; 83690; 84703; 85025; 96374; 96375; 99285; J2270; J2405